=== PATIENT | female | born 1960 | race Caucasian/White ===

== ENCOUNTER 2021-12-30 20:34 | Emergency (ER) | payer MEDICARE ==
[~2021-12-30] VITALS: Ht 170.2 cm; Wt 90.9 kg
[2021-12-30] MEDS ORDERED: ketorolac trometh. 30mg/ml inj. IM ONE (21:25)
[2021-12-30] MEDS ORDERED: acetaminophen 325mg tablet PO ONE (21:25)
[2021-12-30] MEDS ORDERED: metoprolol tartrate 50mg tablet PO ONE (21:25)
[2021-12-30] MEDS ORDERED: cloNIDine 0.1 mg tablet PO ONE (21:25)
[2021-12-30 22:09] VITALS: BP 161/110
== END 2021-12-30 22:10 | disposition home or self-care (01) ==
LOC: ER 20:35
DX: G43.909 Migraine, unspecified, not intractable, without status migrainosus (principal); I10 Essential (primary) hypertension; E78.00 Pure hypercholesterolemia, unspecified; J43.9 Emphysema, unspecified; K21.9 Gastro-esophageal reflux disease without esophagitis; G89.29 Other chronic pain; Z90.710 Acquired absence of both cervix and uterus; Z95.0 Presence of cardiac pacemaker
CPT/HCPCS: 96372; 99284; J1885

== ENCOUNTER 2022-07-01 14:19 | Emergency (ER) | payer MEDICARE ==
[~2022-07-01] VITALS: Ht 172.7 cm; Wt 90.9 kg
[2022-07-01 14:48] LABS: BASOPHILS % (AUTO) 0.7 % (0-1); EOSINOPHILS # (AUTO) 0.1 X10'3 (0-0.9); EOSINOPHILS % (AUTO) 1.4 % (0-6); HEMATOCRIT 36.5 % (35.0-45.0); HEMOGLOBIN 12.6 g/dl (12.0-16.0); LYMPHOCYTES # (AUTO) 2.2 X10'3 (1.1-4.8); LYMPHOCYTES % (AUTO) 33.3 % (21-51); MEAN CORPUSCULAR HEMOGLOBIN 29.4 PG (27.0-31.0); MEAN CORPUSCULAR HGB CONC 34.4 g/dL (33.0-36.5); MEAN CORPUSCULAR VOLUME 85.4 FL (78-98); MEAN PLATELET VOLUME 7.5 FL (7.4-10.4); MONOCYTES # (AUTO) 0.6 X10'3 (0-0.9); MONOCYTES % (AUTO) 8.5 % (2-12); NEUTROPHILS # (AUTO) 3.7 X10'3 (1.8-7.7); NEUTROPHILS % (AUTO) 56.1 % (42-75); PLATELET COUNT 246 X10'3 (140-440); RED BLOOD COUNT 4.27 X10'6 (4.20-5.60); RED CELL DISTRIBUTION WIDTH 13.1 % (11.5-14.5); WHITE BLOOD COUNT 6.5 X10'3 (4.5-11.0)
[2022-07-01 15:06] LABS: ALANINE AMINOTRANSFERASE 30 U/L (12-78); ALBUMIN 3.7 G/DL (3.4-5.0); ALBUMIN/GLOBULIN RATIO 0.9 (1.1-1.5); ALKALINE PHOSPHATASE 57 IU/L (46-116); ANION GAP 9 (8-16); ASPARTATE AMINO TRANSFERASE 24 U/L (10-37); BILIRUBIN,TOTAL 0.3 MG/DL (0.1-1.0); BLOOD UREA NITROGEN 15 MG/DL (7-18); CALCIUM 8.1 MG/DL (8.5-10.1); CHLORIDE 107 MMOL/L (99-107); CREATININE 1.07 MG/DL (0.40-0.90); GLUCOSE 95 MG/DL (70-104); POTASSIUM 3.9 MMOL/L (3.5-5.1); SODIUM 142 MMOL/L (135-145); TOTAL CARBON DIOXIDE 25.7 MMOL/L (24-32); TOTAL PROTEIN 7.7 G/DL (6.4-8.2); eGFR 52 ML/MIN
[2022-07-01 20:25] LABS: D-DIMER 0.44 MG/L FEU (0-0.50)
[2022-07-01 20:45] VITALS: BP 119/74
== END 2022-07-01 20:50 | disposition home or self-care (01) ==
LOC: ER 14:20
DX: R07.9 Chest pain, unspecified (principal); I11.9 Hypertensive heart disease without heart failure; G43.909 Migraine, unspecified, not intractable, without status migrainosus; K21.9 Gastro-esophageal reflux disease without esophagitis; G89.29 Other chronic pain; M54.9 Dorsalgia, unspecified; J44.9 Chronic obstructive pulmonary disease, unspecified; Z90.49 Acquired absence of other specified parts of digestive tract; Z88.8 Allergy status to other drugs, medicaments and biological substances; Z88.1 Allergy status to other antibiotic agents
CPT/HCPCS: 36415; 71045; 80053; 83880; 84484; 85025; 85379; 93005; 99285

== ENCOUNTER 2023-10-16 08:52 | Day surgery (SDC) | payer MEDICARE ==
[~2023-10-16] VITALS: Ht 170.2 cm; Wt 97.3 kg
[2023-10-16 09:45] VITALS: BP 128/87; PULSE 66; RESP 16; TEMP 98.3; O2SAT 100
[2023-10-16 10:21] VITALS: BP 129/69; PULSE 59; RESP 16; O2SAT 100
[2023-10-16 10:36] VITALS: BP 136/76; PULSE 67; RESP 16; O2SAT 99
[2023-10-16 10:44] VITALS: BP 140/72; PULSE 60; RESP 16; O2SAT 100
[2023-10-16 10:51] VITALS: BP 117/79; PULSE 54; RESP 16; O2SAT 100
[2023-10-16] MEDS ORDERED: CHOL20002 PO (11:03)
[2023-10-16] MEDS ORDERED: CYCL5TAB79 PO (11:03)
[2023-10-16] MEDS ORDERED: FINA1TAB PO (11:03)
[2023-10-16] MEDS ORDERED: LOSA25TA41 PO (11:03)
[2023-10-16] MEDS ORDERED: GLUC-95 PO (11:03)
[2023-10-16] MEDS ORDERED: CARI-75 PO (11:03)
[2023-10-16] MEDS ORDERED: CYAN50009 PO (11:03)
[2023-10-16] MEDS ORDERED: PANT40TA54 PO (11:03)
[2023-10-16] MEDS ORDERED: METO-395 PO (11:03)
[2023-10-16] MEDS ORDERED: ATOR10TA70 PO (11:03)
[2023-10-16] MEDS ORDERED: ESTR0.5T29 PO (11:03)
[2023-10-16 11:06] VITALS: BP 122/64; PULSE 52; RESP 16; O2SAT 100
== END 2023-10-16 11:30 | disposition home or self-care (01) ==
LOC: SSTAY O 08:52
PROVIDERS: ATTEND Radiology Vascular & Interventional Radiology
DX: E04.1 Nontoxic single thyroid nodule (principal); Z79.899 Other long term (current) drug therapy; Z88.2 Allergy status to sulfonamides; Z88.8 Allergy status to other drugs, medicaments and biological substances
CPT/HCPCS: 10005; 88173; 88305

== ENCOUNTER 2023-10-26 09:26 | Emergency (ER) | payer MEDICARE ==
[~2023-10-26] VITALS: Ht 170.2 cm; Wt 95.5 kg
[~2023-10-26 09:26] MED LIST: ATOR10TA70 PO; CARI-75 PO; CHOL20002 PO; CYAN50009 PO; CYCL5TAB79 PO; ESTR0.5T29 PO; FINA1TAB PO; GLUC-95 PO; LOSA25TA41 PO; METO-395 PO; PANT40TA54 PO
[2023-10-26 10:36] LABS: BASOPHILS % (AUTO) 0.8 % (0-1); EOSINOPHILS # (AUTO) 0.1 X10'3 (0-0.9); EOSINOPHILS % (AUTO) 1.5 % (0-6); HEMATOCRIT 37.4 % (35.0-45.0); HEMOGLOBIN 12.5 g/dl (12.0-16.0); LYMPHOCYTES # (AUTO) 1.7 X10'3 (1.1-4.8); MEAN CORPUSCULAR HEMOGLOBIN 28.9 PG (27.0-31.0); MEAN CORPUSCULAR HGB CONC 33.6 g/dL (33.0-36.5); MEAN CORPUSCULAR VOLUME 86.2 FL (78-98); MEAN PLATELET VOLUME 8.2 FL (7.4-10.4); MONOCYTES # (AUTO) 0.4 X10'3 (0-0.9); MONOCYTES % (AUTO) 7.8 % (2-12); NEUTROPHILS # (AUTO) 3.1 X10'3 (1.8-7.7); NEUTROPHILS % (AUTO) 57.9 % (42-75); PLATELET COUNT 233 X10'3 (140-440); RED BLOOD COUNT 4.33 X10'6 (4.20-5.60); RED CELL DISTRIBUTION WIDTH 12.6 % (11.5-14.5); WHITE BLOOD COUNT 5.4 X10'3 (4.5-11.0)
[2023-10-26 10:47] LABS: ALANINE AMINOTRANSFERASE 32 U/L (12-78); ALBUMIN 3.7 G/DL (3.4-5.0); ALBUMIN/GLOBULIN RATIO 0.8 (1.1-1.5); ALKALINE PHOSPHATASE 54 IU/L (46-116); ANION GAP 7 (8-16); ASPARTATE AMINO TRANSFERASE 24 U/L (10-37); BILIRUBIN,TOTAL 0.5 MG/DL (0.1-1.0); BLOOD UREA NITROGEN 14 MG/DL (7-18); BUN/CREATININE RATIO 15.1 (10.0-20.0); CALCIUM 8.6 MG/DL (8.5-10.1); CHLORIDE 103 MMOL/L (99-107); CREATININE 0.93 MG/DL (0.40-0.90); GLUCOSE 91 MG/DL (70-104); POTASSIUM 3.9 MMOL/L (3.5-5.1); SODIUM 138 MMOL/L (135-145); TOTAL CARBON DIOXIDE 28.2 MMOL/L (24-32); TOTAL PROTEIN 8.2 G/DL (6.4-8.2); eCRCL 61 ML/MIN; eGFR 61 ML/MIN
[2023-10-26 10:54] LABS: PRO BRAIN NATRIURETIC PEPTIDE 52 PG/ML (0-125)
[2023-10-26 14:11] VITALS: TEMP 98
[2023-10-26] MEDS ORDERED: LIDOcaine Viscous 15ml cup MM ONE (14:35)
[2023-10-26] MEDS ORDERED: mag hydrox/Alum hydrox/simeth 30ml oral suspension PO ONE (14:35)
[2023-10-26 15:13] VITALS: BP 120/79; PULSE 63; RESP 16; O2SAT 99
[2023-10-26 15:30] LABS: D-DIMER 0.34 MG/L FEU (0-0.50)
== END 2023-10-26 16:04 | disposition home or self-care (01) ==
LOC: ER 09:26
DX: R07.9 Chest pain, unspecified (principal); R06.02 Shortness of breath
CPT/HCPCS: 36415; 71045; 80053; 83880; 84484; 85025; 85379; 93005; 99285

== ENCOUNTER 2023-11-22 18:38 | Emergency (ER) | payer MEDICARE ==
[~2023-11-22] VITALS: Ht 172.7 cm; Wt 95.0 kg
[2023-11-22] MEDS ORDERED: CEFD300C3 PO (20:52)
[2023-11-22 21:14] VITALS: BP 141/94; PULSE 89; RESP 16; TEMP 100; O2SAT 97
== END 2023-11-22 21:16 | disposition home or self-care (01) ==
LOC: ER 18:39
DX: J40 Bronchitis, not specified as acute or chronic (principal); Z20.822 Contact with and (suspected) exposure to COVID-19; G43.909 Migraine, unspecified, not intractable, without status migrainosus; E78.00 Pure hypercholesterolemia, unspecified; I10 Essential (primary) hypertension; Z88.8 Allergy status to other drugs, medicaments and biological substances; Z88.1 Allergy status to other antibiotic agents; Z88.2 Allergy status to sulfonamides; Z88.5 Allergy status to narcotic agent; Z79.899 Other long term (current) drug therapy; Z90.710 Acquired absence of both cervix and uterus
CPT/HCPCS: 36415; 71045; 87502; 87503; 87811; 99284

== ENCOUNTER 2024-08-01 15:45 | Emergency (ER) | payer MEDICARE ==
[~2024-08-01] VITALS: Ht 170.2 cm; Wt 82.0 kg
[2024-08-01 15:49] VITALS: TEMP 97.7
[2024-08-01 17:41] VITALS: BP 152/80; PULSE 73; RESP 16; O2SAT 100
== END 2024-08-01 17:43 | disposition home or self-care (01) ==
LOC: ER 15:45
DX: R07.81 Pleurodynia (principal); G43.909 Migraine, unspecified, not intractable, without status migrainosus; E78.00 Pure hypercholesterolemia, unspecified; I10 Essential (primary) hypertension; J44.9 Chronic obstructive pulmonary disease, unspecified; K21.9 Gastro-esophageal reflux disease without esophagitis; Z79.899 Other long term (current) drug therapy; Z88.8 Allergy status to other drugs, medicaments and biological substances; Z88.2 Allergy status to sulfonamides; Z90.710 Acquired absence of both cervix and uterus
CPT/HCPCS: 71101; 99284